=== PATIENT | female | born 1955 | race Caucasian/White ===

== ENCOUNTER 2016-05-29 10:38 | Observation (INO) | payer BC ==
[2016-05-27 16:08] LABS: BASOPHILS 0.4 %; BASOPHILS ABSOLUTE 0.03 10/3/uL (0.0-0.16); EOSINOPHILS 2.6 %; HEMATOCRIT 42.6 % (36.0-48.0); HEMOGLOBIN 14.4 g/dL (12.0-16.0); IMMATURE GRANULOCYTES 0.3 %; IMMATURE GRANULOCYTES ABSOLUTE 0.02 10/3/uL (0.0-0.11); LYMPHOCYTES 19.2 %; MEAN CORPUS HGB CONC 33.8 g/dL (32.0-36.0); MEAN CORPUSCULAR HEMOGLOB 32.1 pg (26.0-34.0); MEAN CORPUSCULAR VOLUME 94.9 fL (80-100); MEAN PLATELET VOLUME 10.2 fL (9.2-13.0); MONOCYTES 6.3 %; MONOCYTES ABSOLUTE 0.49 10/3/uL (0.21-1.20); NEUTROPHILS 71.2 %; NEUTROPHILS ABSOLUTE 5.58 10/3/uL (2.02-8.40); PLATELET COUNT 248 10/3/uL (150-400); RBC DISTRIBUTION WIDTH 13.6 % (12.0-16.0); RED CELL COUNT 4.49 10/6/uL (4.0-5.6); WHITE BLOOD CELLS 7.8 10/3/uL (4.5-10.5)
[2016-05-27 16:09] LABS: MANUAL DIFF NO %
[2016-05-27 16:14] LABS: ASCORBIC ACID (UR NOT ORDER) NEG (NEG); BILIRUBIN, URINE NEGATIVE (NEG); KETONE, URINE NEGATIVE (NEG); LEUKOCYTE ESTERASE(NOT OR LARGE (NEG); WBC (NOT ORDERED) (RFLEX) 17 (0-5)
[2016-05-27 16:15] LABS: PARTIAL THROMBO TIME 24.1 SEC (22.5-37.2); PROTIME (NOT ORD) 13.1 SEC (12.0-14.5)
[2016-05-27 16:20] LABS: BUN (BLOOD UREA NITROGEN) 26 MG/DL (6-23); CALCIUM, SERUM 9.6 MG/DL (8.5-10.4); CHLORIDE, SERUM 105 MMOL/L (96-112); CO2 (CARBON DIOXIDE) 28 MMOL/L (24-34); CREATININE 1.65 MG/DL (0.55-1.02); GFR AFRICAN AMERICAN 38 ML/MIN (>=60); GFR NON AFRICAN AMERICAN 33 ML/MIN (>=60); GLUCOSE, SERUM 143 MG/DL (60-99); POTASSIUM, SERUM 4.5 MMOL/L (3.5-5.3); SODIUM, SERUM 139 MMOL/L (135-148)
--- NOTE | ~2016-05-29 | OP ---
Record Of Operation [facility] [address] [place]. 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 PROCEDURES: Robot-assisted laparoscopic hysterectomy with bilateral salpingo-oophorectomy, CPT code 61547; sentinel lymph node identification intraoperatively, CPT code 92721; laparoscopic lymph node biopsy, CPT code 71257; cystoscopy. ANESTHESIA: General. ESTIMATED BLOOD LOSS: 50 mL. CRYSTALLOID: 3 L. URINE OUTPUT: 200 mL. DRAINS: Abrams. FINDINGS: Minimal amount of tumor present within the endometrial cavity. There was a left common iliac sentinel lymph node noted and a right external iliac sentinel lymph node noted. No suspicious nodes were encountered. There did not appear to be any evidence of myometrial invasion. PATHOLOGY: Uterus, uterine cervix, bilateral adnexa, bilateral pelvic sentinel lymph nodes, pelvic washings. COMPLICATIONS: None. POSTOPERATIVE PLAN: Extubated to PACU. PROCEDURE IN DETAIL: After informed consent was signed, the patient was taken to the operating room and placed in dorsal supine position, where adequate general anesthesia was administered. She was then placed in dorsal lithotomy position in Mateusz stirrups and prepped and draped in usual fashion, and a Abrams catheter was placed. Left upper quadrant incision was made with a scalpel carried down to the fascia, which was incised, muscle , posterior sheath entered sharply, trocar placed, and abdomen insufflated with CO2 gas. A 10 mm camera trocar was placed in the supraumbilical region and robot trocars were placed in the bilateral upper quadrants and right lateral flank. The uterus was sounded, cervix dilated, and the YOSHI uterine manipulator was assembled and deployed. ICG was injected into the cervix at 3 and 9 o'clock. The patient was placed in steep Trendelenburg and the robot docked in the usual fashion. Bilateral round ligaments were taken with bipolar cautery, transected with monopolar scissors, and the pelvic peritoneum was taken down lateral and parallel to the infundibulopelvic ligaments. The paravesical and Record Of Operation [facility] [address] [facility] [place]. [address] NAME: PATTI MUNGUIA : 53 STATUS : DIS Sharee PAT#: [id number] AGE: 61 ADM/REG DATE : 05/29/16 MR#: [id number] REPORT SERV DATE: 05/30/16 DICTATED BY: DESMOND PATE DATE: 05/30/16 REPORT STATUS : Draft TRANSCRIBED BY: SORAYA DATE: 05/30/16 pararectal spaces were developed, and using the Firefly scope, sentinel lymph nodes were identified on the left and right sides as mentioned above and removed as separate specimens and brought out through the assignment desk assistant port. Next, with the ureters identified, the infundibulopelvic ligaments were then isolated, taken with bipolar cautery, transected with monopolar scissors, and the broad ligament taken down to the level of the cervix. With the ureters reflected medially, clips were placed in the origins of the uterine arteries bilaterally. Posterior colpotomy was made with monopolar scissors. Next, the vesicouterine peritoneum was incised and the bladder taken down well beneath the level of the anterior DUYEN ring and the anterior colpotomy was made. The uterine vessels were then taken at the cervix with bipolar cautery, transected with monopolar scissors, and the parametria reflected off the cervical stroma. The anterior and posterior colpotomies were then connected using monopolar scissors, and the uterus, uterine cervix, and bilateral adnexa were then brought out through the vagina. The vagina was then closed with 0 180 V-Loc suture with a running stitch. The pelvis was irrigated and excellent hemostasis was noted. Pelvic washings were taken at the beginning of the case. All instruments were removed from the abdomen. The robot was undocked. The CO2 gas was evacuated. The Abrams catheter was removed and a cystoscope placed through the urethra and the bladder distended with appropriate media. Bilateral brisk ureteral jets were noted suggesting bilateral ureteral patency, and the cystoscope was removed and the bladder drained. CO2 gas was then reintroduced into the abdomen, and using the laparoscope, the pelvis was re-examined and found to be hemostatic. The areas of lymphatic dissection were also evaluated and found to be hemostatic as well. The laparoscope and all trocars were removed from the abdomen. CO2 gas was evacuated. The fascia from the left upper quadrant incision and the supraumbilical incision were closed with 0 Vicryl suture and the skin from all trocar sites was closed with 4-0 Monocryl and Dermabond. The patient was taken out of steep Trendelenburg, placed back in dorsal supine position, awakened, extubated, and sent to the PACU in stable condition. Appropriate antibiotics were given prior to the start of the procedure. TB/MODL Desmond Pate MD / [id number] CC: MD Suyapa Lawrence NP
[~2016-05-29 10:38] MED LIST: ACET500CAP PO; ATV1 PO; CLARIT10 PO; COZAAR100 MG PO; HYDROCHLOROT25 MG PO; LEXAPRO10 PO; VITAMIN B-121000 MC1 SL
[2016-05-30 04:51] LABS: BASOPHILS 0 %; EOSINOPHILS 0 %; HEMATOCRIT 41.4 % (36.0-48.0); IMMATURE GRANULOCYTES 0.2 %; IMMATURE GRANULOCYTES ABSOLUTE 0.02 10/3/uL (0.0-0.11); LYMPHOCYTES 4.6 %; MEAN CORPUS HGB CONC 33.8 g/dL (32.0-36.0); MEAN CORPUSCULAR HEMOGLOB 32.4 pg (26.0-34.0); MEAN CORPUSCULAR VOLUME 95.8 fL (80-100); MEAN PLATELET VOLUME 9.8 fL (9.2-13.0); MONOCYTES ABSOLUTE 0.54 10/3/uL (0.21-1.20); NEUTROPHILS 90.2 %; NEUTROPHILS ABSOLUTE 9.83 10/3/uL (2.02-8.40); PLATELET COUNT 254 10/3/uL (150-400); RBC DISTRIBUTION WIDTH 13.6 % (12.0-16.0); RED CELL COUNT 4.32 10/6/uL (4.0-5.6); WHITE BLOOD CELLS 10.9 10/3/uL (4.5-10.5)
[2016-05-30 04:55] LABS: MANUAL DIFF NO %
[2016-05-30 06:09] LABS: BUN (BLOOD UREA NITROGEN) 22 MG/DL (6-23); CALCIUM, SERUM 8.8 MG/DL (8.5-10.4); CHLORIDE, SERUM 106 MMOL/L (96-112); CO2 (CARBON DIOXIDE) 25 MMOL/L (24-34); CREATININE 1.64 MG/DL (0.55-1.02); GFR AFRICAN AMERICAN 38 ML/MIN (>=60); GFR NON AFRICAN AMERICAN 33 ML/MIN (>=60); GLUCOSE, SERUM 130 MG/DL (60-99); POTASSIUM, SERUM 4.8 MMOL/L (3.5-5.3); SODIUM, SERUM 143 MMOL/L (135-148)
[2016-05-30] MEDS ORDERED: PCET PO (09:00)
[2016-05-30] MEDS ORDERED: COMP10B PO (09:00)
== END 2016-05-30 10:18 | disposition home or self-care (01) ==
LOC: SDC 10:38 → 4EA 19:50
PROVIDERS: Obstetrics & Gynecology Gynecology
PROC: 0UTC4ZZ Resection of Cervix, Percutaneous Endoscopic Approach (ICD-10-PCS; 2016-05-29)
PROC: 0UT24ZZ Resection of Bilateral Ovaries, Percutaneous Endoscopic Approach (ICD-10-PCS; 2016-05-29)
PROC: 0UT74ZZ Resection of Bilateral Fallopian Tubes, Percutaneous Endoscopic Approach (ICD-10-PCS; 2016-05-29)
PROC: 0WBH4ZX Excision of Retroperitoneum, Percutaneous Endoscopic Approach, Diagnostic (ICD-10-PCS; 2016-05-29)
PROC: 0UT94ZZ Resection of Uterus, Percutaneous Endoscopic Approach (ICD-10-PCS; principal; 2016-05-29 12:00)
DX: C54.1 Malignant neoplasm of endometrium (principal); I10 Essential (primary) hypertension; E66.9 Obesity, unspecified; Z68.41 Body mass index [BMI] 40.0-44.9, adult; Z79.899 Other long term (current) drug therapy; Z98.41 Cataract extraction status, right eye; Z98.42 Cataract extraction status, left eye; Z98.890 Other specified postprocedural states
CPT/HCPCS: 36415; 80048; 81001; 85025; 85610; 85730; 86850; 86900; 86901; 87086; 88112; 88305; 88307; 88309; 88341; 88342; 93005; 96374; 96376; A9270-GY; C1758; G0378; J0360; J0694; J2250; J2405; J2550; J2710; J3010